=== PATIENT | female | born 1990 | race Caucasian/White ===

== ENCOUNTER → 2021-08-08 | Outpatient (CLI) | payer BC, MEDICAID ==
--- NOTE | 2021-08-08 15:08 | Diagnostic Imaging Report ---
Limited right breast ultrasound INDICATION: Breast pain, lumps. COMPARISON: There are no prior studies available for comparison. Reportedly, the patient has pain in the lateral aspect of the right breast. She also stated that her physician felt a lump but she could not identify the lump. The entire breast was surveyed. There is a small 2 x 6 mm well-circumscribed avascular hypoechoic lesion with through transmission in the 10 o'clock position of the right breast approximately 6 - 7 cm from the nipple. This does suggest a minute cyst. There is no discrete solid or cystic mass noted otherwise. There is no sign of an abscess either. IMPRESSION: 1. There is no solid mass identified to suggest malignancy. If clinical concern regarding a palpable abnormality persists, then biopsy should still be considered. 2. There is a minute benign-appearing cyst in the 10 o'clock position of the right breast. 3. There is no acute abnormality identified. ACR BI-RADS Category 1: Negative. Result letter will be mailed to the patient. Note: At least 10% of breast cancer is not imaged by mammography. Dictated by: Dictated on workstation # [id number]
== END ==
LOC: RAD 13:45
DX: N60.01 Solitary cyst of right breast (principal)
CPT/HCPCS: 76641